=== PATIENT | male | born 1955 | race Hispanic/Latino ===

== ENCOUNTER 2016-09-18 07:08 | Day surgery (SDC) | payer MEDICAID ==
[2016-09-18] MEDS ORDERED: NACL 0.9% 500 ML 500 ML IV SCH (08:00)
[2016-09-18] MEDS ORDERED: HEPARIN 10,000 UNITS/10 ML ONE (08:13)
[2016-09-18] MEDS: VERSED ONE ×3 (08:44→09:25)
[2016-09-18] MEDS: SUBLIMAZE ONE ×3 (08:45→09:26)
[2016-09-18] MEDS: XYLOCAINE 2% INFILTRATI ONE ×2 (08:45→09:18)
[2016-09-18] MEDS: HEPARIN/NS 5000 UNIT/500ML(CATH LAB) 1,000 ML IR ONE ×2 (08:46→09:18)
[2016-09-18] MEDS: HEPARIN/NS 5000 UNIT/500ML(CATH LAB) 500 ML IR ONE ×2 (09:14→09:18)
[2016-09-18] MEDS ORDERED: NACL 0.9% 500 ML 500 ML ONE (09:45)
--- NOTE | 2016-09-18 10:28 | Short Stay Summary ---
Short Stay Documentation Date of service: 09/18/16 - History H&P: obtained from office - Allergies and Medications Current Medications: Allergies codeine Allergy (Verified 08/05/14 17:36) mahsa franco Home Medications Medication Instructions Recorded Confirmed Last Taken Type Aspirin [Aspirin BABY CHEW TAB] 81 mg PO DAILY 08/05/14 09/18/16 09/17/16 History Carvedilol [Coreg] 25 mg PO BID 08/05/14 09/18/16 09/18/16 History Lisinopril [Lisinopril] 40 mg PO DAILY 08/05/14 09/18/16 09/18/16 History Prednisone [Prednisone] 10 mg PO DAILY 08/05/14 09/18/16 09/17/16 History Simvastatin [Simvastatin] 20 mg PO HS 08/05/14 09/18/16 09/17/16 History Cilostazol [Pletal] 100 mg PO BID 09/18/16 09/18/16 09/17/16 History Spironolactone [Aldactone] 25 mg PO DAILY 09/18/16 09/18/16 09/17/16 History Active Medications Sodium Chloride (Nacl 0.9% 500 Ml) 500 mls @ 50 mls/hr IV DIRECT ANISHA Stop: 09/18/16 17:59 Last Admin: 09/18/16 08:15 Dose: 50 mls/hr - Brief post op/procedure progress note Date of procedure: 09/18/16 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 - Disposition Condition at discharge: Stable Disposition: DISCHARGED TO HOME OR SELFCARE Short Stay Discharge Plan Follow up with: ASHLEY GILES MD [Primary Care Provider] - 7 Days Prescriptions: Cilostazol [Pletal] 50 mg PO BID #60 tablet Clopidogrel Bisulfate [Plavix] 75 mg PO DAILY #30 tablet traMADol [Ultram 50 MG tab] 25 mg PO Q4HR PRN #10 tablet PRN Reason: Pain
[2016-09-18] MEDS ORDERED: ULTRAM PO PRN (11:54)
[2016-09-18 14:55] VITALS: BP 158/77
--- NOTE | 2016-09-19 00:33 | Procedure Note ---
PERIPHERAL INTERVENTION REPORT INDICATIONS: The patient is a 61-year-old white gentleman with history of significant claudication involving both the legs, left leg more than right. He can walk hardly 100 feet and he gets pain in the calf. The patient had angiograms done a few weeks ago, which showed bilateral superficial femoral artery disease. The left SFA showed a 100% occlusion in the distal part short segment with a 2-vessel runoff, anterior tibial occluded on the left side. Presently, the patient is being scheduled for intervention of the distal SFA occlusion. The patient is aware of the procedure, potential complications, and the alternatives of therapy available. DESCRIPTION OF PROCEDURE: The patient was brought to the catheterization laboratory in a fasting condition. Right groin area is thoroughly cleansed with chlorhexidine solution, sterile drapes were applied. Local anesthesia was achieved in the right groin. The patient was sedated with IV Versed and fentanyl. Right femoral artery puncture was made using 5-Lebanese micropuncture needle. Subsequently, 5-Lebanese sheath was introduced. Using 5-Lebanese rim catheter, a 0.035 inch Advantage guide wire was advanced into the left mid SFA. This catheter was replaced with a 6-Lebanese 45 cm destination sheath over an Advantage wire. The patient received 7000 units of heparin. The patient's angiogram showed previously inverted distal SFA occlusion, short segment. Runoff was still unchanged from before with 2-vessel runoff and occluded anterior tibial. Same Advantage Glidewire was advanced without much difficulty into the popliteal artery. Once it was confirmed with intraluminal, the lesion was dilated with 4.0 x 40 mm EverCross balloon up to 6 atmospheres. This gave good result, widely opened lumen was noted. No complaints of pain in the distal leg. Subsequently, 6.0 x 40 mm Evercross balloon was used and inflated to 8 atmospheres with very good result. This was inflated up to 3 minutes. The patient tolerated the procedure well. Final angiogram showed no residual stenosis in the occluded area. Distal runoff remained unchanged. After obtaining the final angiograms and satisfactory result was obtained, destination sheath was replaced with a short 6-Lebanese femoral sheath. ACT was found to be 250 seconds. During the entire procedure, the patient's vital signs have been stable including oxygen saturation, rhythm, and blood pressure. No untoward complications were noted. FINAL IMPRESSION: Uncomplicated balloon angioplasty followed by using a drug-eluting balloon, namely In.Pact Admiral balloon with very good result. The lesion was reduced from 100 to 0%. Good distal runoff was noted at the end of the procedure without any evidence of embolization or dissection. Intervention site was left distal SFA. The patient's sheath in the right groin will be taken out once ACT is close to 180 seconds. The patient will be monitored for 4-6 hours and will be discharged home if stable. JOB# [id number] ELLY/DON ASHTON
== END 2016-09-18 16:35 | disposition home or self-care (01) ==
LOC: OPU 07:08
PROVIDERS: ATTEND Internal Medicine
DX: I70.213 Atherosclerosis of native arteries of extremities with intermittent claudication, bilateral legs (principal); I11.0 Hypertensive heart disease with heart failure; I50.42 Chronic combined systolic (congestive) and diastolic (congestive) heart failure; J43.9 Emphysema, unspecified; E78.5 Hyperlipidemia, unspecified; G40.909 Epilepsy, unspecified, not intractable, without status epilepticus; F32.9 Major depressive disorder, single episode, unspecified; F17.210 Nicotine dependence, cigarettes, uncomplicated; Z95.810 Presence of automatic (implantable) cardiac defibrillator; Z79.899 Other long term (current) drug therapy; Z79.82 Long term (current) use of aspirin; Z86.73 Personal history of transient ischemic attack (TIA), and cerebral infarction without residual deficits; Z80.42 Family history of malignant neoplasm of prostate
CPT/HCPCS: 37224; 75710; 85347; C1725; C1769; C1887; C1894; J1644; J2250; J3010; J7040; Q9967

== ENCOUNTER 2016-12-28 11:57 | Emergency (ER) | payer MEDICAID ==
[2016-12-28 12:32] LABS: Basophils % (Auto) 1.1 % (0.0-1.8); Eosinophils % (Auto) 0.7 % (0.0-4.3); Hematocrit 44.5 % (35.5-45.6); Hemoglobin 14.8 gm/dl (11.8-15.2); Mean Corpuscular HGB Conc 33 % (32-34); Mean Corpuscular Hemoglobin 31 pg (28-32); Mean Corpuscular Volume 93 fl (84-94); Platelet Count 206 K/mm3 (140-440); Red Cell Distribution Width 14.7 % (13.2-15.2); White Blood Count 9.2 K/mm3 (4.5-11.0)
[2016-12-28 12:36] LABS: INR 1.01 (0.87-1.13); Partial Thromboplastin Time 27.4 Sec. (24.2-36.6)
[2016-12-28 12:47] LABS: Anion Gap 15 mmol/L; BUN/Creatinine Ratio 12.22; Blood Urea Nitrogen 11 mg/dL (9-20); Calcium 8.8 mg/dL (8.4-10.2); Carbon Dioxide 27 mmol/L (22-30); Chloride 100.9 mmol/L (98-107); Glucose 104 mg/dL (75-100); Potassium 3.8 mmol/L (3.6-5.0); Sodium 139 mmol/L (137-145)
--- NOTE | 2016-12-28 13:25 | Admit Criteria Form ---
Admission Criteria Documentation: CHEST PAIN Clinical Indications for Admission to Inpatient Care (Place 'X' for any and all applicable criteria): Admission is indicated for chest pain and ANY ONE of the following(1)(2)(3)(4)(5 ): [ ]I. Angina with acute coronary syndrome (Also use Myocardial Infarction or Angina guideline) [ ]II. Hemodynamic instability [ ]III. Angina needing acute intervention as indicated by ALL of the following( 11)(12): [ ]a) Unstable angina is present as indicated by angina that is ANY ONE of the following: [ ]i) New onset [ ]ii) Nocturnal [ ]iii) Prolonged at rest [ ]iv) Progressive [ ]b) Angina warrants acute intervention as indicated by ANY ONE of the following: [ ]i) Recurrent angina (e.g, not responding as previously to treatment) [ ]ii) Angina at rest or with low-level activities despite initial medical therapy [ ]iii) New or presumably new ST-segment depression on ECG [ ]iv) Signs or symptoms of heart failure (eg, dyspnea, pulmonary edema) [ ]v) New or worsening mitral regurgitation [ ]vi) Hemodynamic instability [ ]vii) Dangerous arrhythmia (eg, sustained ventricular tachycardia) [ ]viii) History of percutaneous coronary intervention within 6 months [ ]ix) History of coronary artery bypass graft surgery [ ]x) ABDOULAYE risk score of 2 or greater[A] [ ]xi) History of Diabetes(14) [ ]xii) High-risk cardiac ischemia findings on noninvasive testing (e.g, echocardiogram, treadmill testing, nuclear scan) [ ]xiii) Chronic renal insufficiency (ie, estimated GFR less than 60 mL/min/1.732m) [ ]xiv) Left ventricular ejection fraction less than 40% [ ]IV. Evidence of NH (eg, cardiac biomarkers positive, ST-segment elevation on ECG) also use Myocardial Infarction Criteria Form. [ ]V. Pulmonary edema [ ]. Respiratory distress [ ]VII. Chest pain indicative of serious diagnosis other than coronary artery disease (eg, aortic dissection) [ ]VIII. Contraindications and/or Inappropriate clinical situations for Observational Care in patients with Chest Pain, when ANY ONE of the following is required: [ ]a) Patient with risk factor for pulmonary embolism, acute coronary syndrome and myocardial infarction (18) [ ]b) Patient with Pulmonary embolism require an average LOS of 4.3 days, therefore emergency department observation management is inappropriate 18,23 [ ]c) Painful condition/s in the elderly, have the highest rate of recidivism after emergency department observation management (10.8%) 20,21,22 [ ]d) Elevated cardiac biomarker requires intensive and exhaustive care (19) [X ]IX. General contraindications and/or Inappropriate clinical situations for Observational Care in patients with Chest Pain, when ANY ONE of the following is required: [X ]a) Prediction of prolongation of LOS based on ANY ONE of the following may be considered as a contraindication for observational care 2, 3, 4, 5, 6, 7, 8, 9, 10, 11 [ ]i) Age > 65 yrs. [ X]ii) Patient arriving by ambulance [ ]iii) Patient with high acuity [ ]iv) Patient requiring vital sign monitoring [ ]v) Patient on IV medication [ ]b) Systolic blood pressures 180mmHg 3,12 [ ]c) Patient with altered mental status including delirium and other alteration of consciousness, (3) [ ]d) Patient whose discharge disposition will be to a [place] [facility] home or rehabilitation home should not be managed in Emergency Department Observation Unit. CMS rule requires 3 days hospital stay before such placement. 3,13 [ ]e) Patient with failure to thrive due to broad array of etiologies 3,16,17 [ ]f) Inability to ambulate 3,14 Extended stay beyond goal length of stay may be needed for (1)(28): [ ]a) Specific condition diagnosed after evaluation (eg, pulmonary embolism, aortic dissection) [ ]b) Unstable angina [ ]c) Continued suspicion of acute coronary syndrome with inability to complete needed cardiac evaluation (eg, patient clinically unable to undergo stress testing) [ ]d) Myocardial infarction (Contents from ANGINA and CHEST PAIN clinical indications for admission to inpatient care have been integrated in this form) The original [facility] content created by [employer] has been revised. The portions of the content which have been revised are identified through the use of italic text or in bold, and [facility] [employer] has neither reviewed nor approved the modified material. All other unmodified content is copyright [facility]. Please see references footnoted in the original [facility] [employer] edition 2016 Admission Criteria Met: Yes
--- NOTE | 2016-12-28 13:51 | Emergency Department Report ---
ED Chest Pain HPI - General Chief Complaint: Chest Pain Stated Complaint: CHEST PAIN Time Seen by Provider: 12/28/16 12:57 Source: patient, family, EMS Mode of arrival: Stretcher Limitations: No Limitations - History of Present Illness Initial Comments: 61-year-old male with past medical history of coronary artery disease, hypertension, [place] was sent to the ED complaining of chest pain. Onset of some dysarthria days prior. Patient states chest pains located left sternal area, pressure sensation, intermittent, worse with exertion, improves with rest. Patient denies: Fever/chills, cough, diaphoresis, shortness of breath, dyspnea on exertion, orthopnea, lower extremity edema. Patient states pain is similar to his previous [place]. 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 MD Complaint: chest pain -: Gradual (1), days(s) Onset: during rest Pain Location: substernal Pain Radiation: none Severity: moderate Severity scale (0 -10): 0 Quality: aching, heaviness Consistency: intermittent Improves With: nothing Worsens With: exertion re: denies: nausea, vomting, diaphoresis, dyspnea Other Symptoms: denies: cough, fever, acid taste in mouth, palpitations, burping - Related Data Home Medications Medication Instructions Recorded Confirmed Last Taken Aspirin [Aspirin BABY CHEW TAB] 81 mg PO DAILY 08/05/14 12/28/16 12/27/16 Carvedilol [Coreg] 25 mg PO BID 08/05/14 12/28/16 12/27/16 Lisinopril [Lisinopril] 40 mg PO DAILY 08/05/14 12/28/16 12/27/16 Prednisone [Prednisone] 10 mg PO DAILY 08/05/14 12/28/16 12/27/16 Simvastatin [Simvastatin] 20 mg PO HS 08/05/14 12/28/16 12/27/16 Spironolactone [Aldactone] 25 mg PO DAILY 09/18/16 12/28/16 12/27/16 Previous Rx's Medication Instructions Recorded Last Taken Type Cilostazol [Pletal] 50 mg PO BID #60 tablet 09/18/16 12/27/16 Rx Clopidogrel Bisulfate [Plavix] 75 mg PO DAILY #30 tablet 09/18/16 12/27/16 Rx traMADol [Ultram 50 MG tab] 25 mg PO Q4HR PRN #10 tablet 09/18/16 12/27/16 Rx Allergies Allergy/AdvReac Type Severity Reaction Status Date / Time codeine Allergy swells, Verified 08/05/14 17:36 hives morphine Allergy Swelling Verified 12/28/16 12:13 Heart Score - HEART Score History: Moderately suspicious EKG: Non-specific Age: 45-65 Risk factors: > 3 risk factors or hx of atherosclerotic disease Troponin: < normal limit HEART Score: 5 - Critical Actions Critical Actions: 4-6 pts:12-16.6% risk of adverse cardiac event. Should be admitted ED Review of Systems ROS: Stated complaint: CHEST PAIN Other details as noted in HPI Constitutional: denies: chills, fever Eyes: denies: eye pain, eye discharge, vision change ENT: denies: ear pain, throat pain Respiratory: denies: cough, shortness of breath, wheezing Cardiovascular: chest pain. denies: palpitations Endocrine: no symptoms reported Gastrointestinal: denies: abdominal pain, nausea, diarrhea Genitourinary: denies: urgency, dysuria Musculoskeletal: denies: back pain, joint swelling, arthralgia Skin: denies: rash, lesions Neurological: denies: headache, weakness, paresthesias Psychiatric: denies: anxiety, depression Hematological/Lymphatic: denies: easy bleeding, easy bruising ED Past Medical Hx - Past Medical History Previous Medical History?: Yes Hx Hypertension: Yes (2009) Hx CVA: Yes (ischemic x 2 (no resid. deficits)) Hx Heart Attack/AMI: Yes (x2 2009) Hx Congestive Heart Failure: Yes Hx Diabetes: No Hx COPD: Yes - Surgical History Past Surgical History?: Yes Hx Pacemaker: Yes (2010) Hx Internal Defibrillator: Yes (2010) - Social History Smoking Status: Current Every Day Smoker - Medications Home Medications: Home Medications Medication Instructions Recorded Confirmed Last Taken Type Aspirin [Aspirin BABY CHEW TAB] 81 mg PO DAILY 08/05/14 12/28/16 12/27/16 History Carvedilol [Coreg] 25 mg PO BID 08/05/14 12/28/16 12/27/16 History Lisinopril [Lisinopril] 40 mg PO DAILY 08/05/14 12/28/16 12/27/16 History Prednisone [Prednisone] 10 mg PO DAILY 08/05/14 12/28/16 12/27/16 History Simvastatin [Simvastatin] 20 mg PO HS 08/05/14 12/28/16 12/27/16 History Cilostazol [Pletal] 50 mg PO BID #60 tablet 09/18/16 12/28/16 12/27/16 Rx Clopidogrel Bisulfate [Plavix] 75 mg PO DAILY #30 tablet 09/18/16 12/28/1612/27 Rx Spironolactone [Aldactone] 25 mg PO DAILY 09/18/16 12/28/16 12/27/16 History traMADol [Ultram 50 MG tab] 25 mg PO Q4HR PRN #10 tablet 09/18/16 12/28/1612/27 Rx ED Physical Exam - General Limitations: No Limitations General appearance: alert, in no apparent distress - Head Head exam: Present: atraumatic, normocephalic - Eye Eye exam: Present: normal appearance - ENT ENT exam: Present: mucous membranes moist - Neck Neck exam: Present: normal inspection - Respiratory Respiratory exam: Present: normal lung sounds bilaterally. Absent: respiratory distress - Cardiovascular Cardiovascular Exam: Present: regular rate, normal rhythm. Absent: systolic murmur, diastolic murmur, rubs, gallop - GI/Abdominal GI/Abdominal exam: Present: soft, normal bowel sounds - Rectal Rectal exam: Present: deferred - Extremities Exam Extremities exam: Present: normal inspection - Back Exam Back exam: Present: normal inspection - Neurological Exam Neurological exam: Present: alert, oriented X3 - Psychiatric Psychiatric exam: Present: normal affect, normal mood - Skin Skin exam: Present: warm, dry, intact, normal color. Absent: rash ED Course Vital Signs 12/28/16 12/28/16 12/28/16 12:09 12:36 12:41 Temperature 98.2 F Pulse Rate 76 76 Respiratory 20 18 18 Rate Blood Pressure 153/92 Blood Pressure 133/92 [Right] O2 Sat by Pulse 98 95 Oximetry - Reevaluation(s) Reevaluation #1: 12/28/16 14:01 Patient resting comfortably refusing meds for pain. ED Medical Decision Making - Lab Data Result diagrams: 12/28/16 12:16 12/28/16 12:16 - EKG Data -: EKG Interpreted by Me EKG shows normal: sinus rhythm, axis (normal), intervals (qtc 464 ), QRS complexes, ST-T waves (no STEMI ) Rate: normal (73) - EKG Data Interpretation: no acute changes - Radiology Data Radiology results: image reviewed interpreted by me: No acute findings. Conclusion: No acute chest process with a few incidental findings, including possible underlying COPD. Dr Morales - Medical Decision Making 15-year-old male with past medical history of coronary artery disease, hypertension, [place] presenting to the ED complaining of chest pain. At this time patient does not appear to have STEMI/NSTEMI. I am concerned that he has risk factors for unstable angina there for I will admit to medicine service for observation and serial troponins. Patient has been accepted at hospitalist Dr. HAYES. Low suspicion for: Pneumonia, pneumothorax, PE, dissection. Critical Care Time: No Critical care attestation.: If time is entered above; I have spent that time in minutes in the direct care of this critically ill patient, excluding procedure time. ED Disposition Clinical Impression: Chest pain Disposition: DC-09 OP ADMIT IP TO THIS HOSP Is pt being admited?: Yes Does the pt Need Aspirin: No Condition: Stable Instructions: Chest Pain (ED) Referrals: PRIMARY CARE, [Primary Care Provider] - 3-5 Days
--- NOTE | 2016-12-28 13:56 | XRay Report ---
PORTABLE CHEST INDICATION: Cough. COMPARISON: 02/08/2013 FINDINGS: Portable, frontal chest radiographs, 2 images demonstrate slightly crowded markings centrally and inferiorly with somewhat lucent upper lung zones. No pleural effusions or CHF. Normal cardiomediastinal silhouette. Mild left retrocardiac scarring or atelectasis. Left AICD with dual chamber leads. Intact bones. EKG leads. CONCLUSION: No acute chest process with few incidental findings, including possible underlying COPD. Thank you for the opportunity to participate in this patient's care.
[2016-12-28] MEDS ORDERED: ULTRAM PO PRN (20:32)
--- NOTE | 2016-12-28 20:32 | History and Physical Report ---
History of Present Illness Date of examination: 12/28/16 Date of admission: 12/28/16 Chief complaint: L Side Chest pain 1 to 2 days History of present illness: [place]: 61-year-old male with past medical history of coronary artery disease, hypertension, AR was sent to the ED complaining of chest pain. Onset of some dysarthria days prior. Patient states chest pains located left sternal area, pressure sensation, intermittent, worse with exertion, improves with rest. Patient denies: Fever/chills, cough, diaphoresis, shortness of breath, dyspnea on exertion, orthopnea, lower extremity edema. Patient states pain is similar to his previous AR. 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 MD Complaint: chest pain -: Gradual (1), days(s) Onset: during rest Pain Location: substernal Pain Radiation: none Severity: moderate Severity scale (0 -10): 0 Quality: aching, heaviness Consistency: intermittent Improves With: nothing Worsens With: exertion re: denies: nausea, vomting, diaphoresis, dyspnea Other Symptoms: denies: cough, fever, acid taste in mouth, palpitations, burping - Related Data Home Medications Medication Instructions Recorded Confirmed Last Taken Aspirin [Aspirin BABY CHEW TAB] 81 mg PO DAILY 08/05/14 12/28/16 12/27/16 Carvedilol [Coreg] 25 mg PO BID 08/05/14 12/28/16 12/27/16 Lisinopril [Lisinopril] 40 mg PO DAILY 08/05/14 12/28/16 12/27/16 Prednisone [Prednisone] 10 mg PO DAILY 08/05/14 12/28/16 12/27/16 Simvastatin [Simvastatin] 20 mg PO HS 08/05/14 12/28/16 12/27/16 Spironolactone [Aldactone] 25 mg PO DAILY 09/18/16 12/28/16 12/27/16 Previous Rx's Medication Instructions Recorded Last Taken Type Cilostazol [Pletal] 50 mg PO BID #60 tablet 09/18/16 12/27/16 Rx Clopidogrel Bisulfate [Plavix] 75 mg PO DAILY #30 tablet 09/18/16 12/27/16 Rx traMADol [Ultram 50 MG tab] 25 mg PO Q4HR PRN #10 tablet 09/18/16 12/27/16 Rx Allergies Allergy/AdvReac Type Severity Reaction Status Date / Time codeine Allergy swells, Verified 08/05/14 17:36 hives morphine Allergy Swelling Verified 12/28/16 12:13 Heart Score - HEART Score History: Moderately suspicious EKG: Non-specific Age: 45-65 Risk factors: > 3 risk factors or hx of atherosclerotic disease Troponin: < normal limit HEART Score: 5 - Critical Actions Critical Actions: 4-6 pts:12-16.6% risk of adverse cardiac event. Should be admitted ED Review of Systems ROS: Stated complaint: CHEST PAIN Other details as noted in HPI Constitutional: denies: chills, fever Eyes: denies: eye pain, eye discharge, vision change ENT: denies: ear pain, throat pain Respiratory: denies: cough, shortness of breath, wheezing Cardiovascular: chest pain. denies: palpitations Endocrine: no symptoms reported Gastrointestinal: denies: abdominal pain, nausea, diarrhea Genitourinary: denies: urgency, dysuria Musculoskeletal: denies: back pain, joint swelling, arthralgia Skin: denies: rash, lesions Neurological: denies: headache, weakness, paresthesias Psychiatric: denies: anxiety, depression Hematological/Lymphatic: denies: easy bleeding, easy bruising ED Past Medical Hx - Past Medical History Previous Medical History?: Yes Hx Hypertension: Yes (2009) Hx CVA: Yes (ischemic x 2 (no resid. deficits)) Hx Heart Attack/AMI: Yes (x2 2009) Hx Congestive Heart Failure: Yes Hx Diabetes: No Hx COPD: Yes - Surgical History Past Surgical History?: Yes Hx Pacemaker: Yes (2010) Hx Internal Defibrillator: Yes (2010) - Social History Smoking Status: Current Every Day Smoker - Medications Home Medications: Home Medications Medication Instructions Recorded Confirmed Last Taken Type Aspirin [Aspirin BABY CHEW TAB] 81 mg PO DAILY 08/05/14 12/28/16 12/27/16 History Carvedilol [Coreg] 25 mg PO BID 08/05/14 12/28/16 12/27/16 History Lisinopril [Lisinopril] 40 mg PO DAILY 08/05/14 12/28/16 12/27/16 History Prednisone [Prednisone] 10 mg PO DAILY 08/05/14 12/28/16 12/27/16 History Simvastatin [Simvastatin] 20 mg PO HS 08/05/14 12/28/16 12/27/16 History Cilostazol [Pletal] 50 mg PO BID #60 tablet 09/18/16 12/28/16 12/27/16 Rx Clopidogrel Bisulfate [Plavix] 75 mg PO DAILY #30 tablet 09/18/16 12/28/1612/27 Rx Spironolactone [Aldactone] 25 mg PO DAILY 09/18/16 12/28/16 12/27/16 History traMADol [Ultram 50 MG tab] 25 mg PO Q4HR PRN #10 tablet 09/18/16 12/28/1612/27 Rx Medications and Allergies Allergies Allergy/AdvReac Type Severity Reaction Status Date / Time codeine Allergy swells, Verified 08/05/14 17:36 hives morphine Allergy Swelling Verified 12/28/16 12:13 Home Medications Medication Instructions Recorded Confirmed Last Taken Type Aspirin [Aspirin BABY CHEW TAB] 81 mg PO DAILY 08/05/14 12/28/16 12/27/16 History Carvedilol [Coreg] 25 mg PO BID 08/05/14 12/28/16 12/27/16 History Lisinopril [Lisinopril] 40 mg PO DAILY 08/05/14 12/28/16 12/27/16 History Prednisone [Prednisone] 10 mg PO DAILY 08/05/14 12/28/16 12/27/16 History Simvastatin [Simvastatin] 20 mg PO HS 08/05/14 12/28/16 12/27/16 History Cilostazol [Pletal] 50 mg PO BID #60 tablet 09/18/16 12/28/16 12/27/16 Rx Clopidogrel Bisulfate [Plavix] 75 mg PO DAILY #30 tablet 09/18/16 12/28/1612/27 Rx Spironolactone [Aldactone] 25 mg PO DAILY 09/18/16 12/28/16 12/27/16 History traMADol [Ultram 50 MG tab] 25 mg PO Q4HR PRN #10 tablet 09/18/16 12/28/1612/27 Rx Exam - Constitutional Vitals: Temp Pulse Resp BP Pulse Ox 98.2 F 78 18 174/105 99 12/28/16 12:09 12/28/16 18:37 12/28/16 18:37 12/28/16 18:37 12/28/16 18:37 General appearance: Present: no acute distress, well-nourished - EENT Eyes: Present: PERRL ENT: hearing intact, clear oral mucosa - Neck Neck: Present: supple, normal ROM - Respiratory Respiratory effort: normal Respiratory: bilateral: CTA - Cardiovascular Heart Sounds: Present: S1 & S2. Absent: rub, click - Extremities Extremities: pulses symmetrical, No edema Peripheral Pulses: within normal limits - Abdominal General gastrointestinal: Present: soft, non-tender, non-distended, normal bowel sounds Male genitourinary: Present: normal - Integumentary Integumentary: Present: clear, warm, dry - Musculoskeletal Musculoskeletal: gait normal, strength equal bilaterally - Psychiatric Psychiatric: appropriate mood/affect, intact judgment & insight - Neurologic Neurologic: CNII-XII intact, moves all extremities Results - Labs CBC & Chem 7: 12/28/16 12:16 12/28/16 12:16 Labs: Laboratory Last Values WBC 9.2 K/mm3 (4.5-11.0) 12/28/16 12:16 RBC 4.80 M/mm3 (3.65-5.03) 12/28/16 12:16 Hgb 14.8 gm/dl (11.8-15.2) 12/28/16 12:16 Hct 44.5 % (35.5-45.6) 12/28/16 12:16 MCV 93 fl (84-94) 12/28/16 12:16 MCH 31 pg (28-32) 12/28/16 12:16 MCHC 33 % (32-34) 12/28/16 12:16 RDW 14.7 % (13.2-15.2) 12/28/16 12:16 Plt Count 206 K/mm3 (140-440) 12/28/16 12:16 Lymph % (Auto) 10.6 % (13.4-35.0) L 12/28/16 12:16 [place] % (Auto) 4.2 % (0.0-7.3) 12/28/16 12:16 Eos % (Auto) 0.7 % (0.0-4.3) 12/28/16 12:16 Baso % (Auto) 1.1 % (0.0-1.8) 12/28/16 12:16 Lymph # 1.0 K/mm3 (1.2-5.4) L 12/28/16 12:16 [place] # 0.4 K/mm3 (0.0-0.8) 12/28/16 12:16 Eos # 0.1 K/mm3 (0.0-0.4) 12/28/16 12:16 Baso # 0.1 K/mm3 (0.0-0.1) 12/28/16 12:16 Seg Neutrophils % 83.4 % (40.0-70.0) H 12/28/16 12:16 Seg Neutrophils # 7.7 K/mm3 (1.8-7.7) 12/28/16 12:16 PT 13.2 Sec. (12.2-14.9) 12/28/16 12:16 INR 1.01 (0.87-1.13) 12/28/16 12:16 APTT 27.4 Sec. (24.2-36.6) 12/28/16 12:16 Sodium 139 mmol/L (137-145) 12/28/16 12:16 Potassium 3.8 mmol/L (3.6-5.0) 12/28/16 12:16 Chloride 100.9 mmol/L (98-107) 12/28/16 12:16 Carbon Dioxide 27 mmol/L (22-30) 12/28/16 12:16 Anion Gap 15 mmol/L 12/28/16 12:16 BUN 11 mg/dL (9-20) 12/28/16 12:16 Creatinine 0.9 mg/dL (0.8-1.5) 12/28/16 12:16 Estimated GFR > 60 ml/min 12/28/16 12:16 BUN/Creatinine Ratio 12.22 % 12/28/16 12:16 Glucose 104 mg/dL (75-100) H 12/28/16 12:16 Calcium 8.8 mg/dL (8.4-10.2) 12/28/16 12:16 Troponin T < 0.010 ng/mL (0.00-0.029) 12/28/16 15:57 - Imaging and Cardiology EKG: report reviewed Assessment and Plan Advance Directives: Yes (FC) VTE prophylaxis?: Chemical Plan of care discussed with patient/family: Yes - Patient Problems (1) Acute coronary syndrome Status: Acute Plan to address problem: ACS protocol.Lexiscan ordered (2) PVD (peripheral vascular disease) with claudication Status: Acute (3) CAD (coronary artery disease) Status: Chronic Qualifiers: Coronary Disease-Associated Artery/Lesion type: [place] artery [place] vs. transplanted heart: [place] heart Associated angina: with unspecified angina Qualified Code(s): I25.119 - Atherosclerotic heart disease of [place] coronary artery with unspecified angina pectoris Plan to address problem: Cont Plavix (4) Hypertension Status: Chronic Qualifiers: Hypertension type: essential hypertension Qualified Code(s): I10 - Essential (primary) hypertension Plan to address problem: Cont Coreg and Lisinopril (5) Tobacco abuse Status: Chronic Plan to address problem: counselled Nicoderm patch ordered
[2016-12-28] MEDS ORDERED: DULCOLAX PR PRN (20:34)
[2016-12-28] MEDS ORDERED: AMBIEN PO PRN (20:34)
[2016-12-28] MEDS ORDERED: TYLENOL PO PRN (20:34)
[2016-12-28] MEDS ORDERED: PERCOCET 5/325 PO PRN (20:34)
[2016-12-28] MEDS ORDERED: DILAUDID IV PRN (20:34)
[2016-12-28] MEDS ORDERED: ZOFRAN IV PRN (20:34)
[2016-12-28] MEDS ORDERED: MILK OF MAGNESIA PO PRN (20:34)
[2016-12-28] MEDS ORDERED: ZESTRIL PO SCH (21:00)
[2016-12-28] MEDS ORDERED: BABY ASPIRIN PO SCH (21:00)
[2016-12-28] MEDS ORDERED: DELTASONE PO SCH (21:00)
[2016-12-28 21:54] VITALS: BP 161/89
[2016-12-28] MEDS ORDERED: ALDACTONE PO SCH (22:00)
[2016-12-28] MEDS ORDERED: COREG PO SCH (22:00)
[2016-12-28] MEDS ORDERED: PLAVIX PO SCH (22:00)
[2016-12-28] MEDS ORDERED: ZOCOR PO SCH (22:00)
[2016-12-28] MEDS ORDERED: PLETAL PO SCH (22:00)
[2016-12-29] MEDS ORDERED: ZESTRIL PO SCH (10:00)
--- NOTE | 2016-12-29 19:39 | Discharge Summary ---
Providers - Providers Date of discharge: 12/28/16 12/28/16 20:34 Consult to Physician [CONS] Routine Consulting Provider: CHANEL ALVARADO Reason For Exam: ACS Primary care physician: GREASE MONKEY Hospitalization Condition: Stable Hospital course: [id number] Left AMA from ED Disposition: [id number] LEFT AGAINST MED ADVICE - Discharge Diagnoses (1) Acute coronary syndrome Status: Acute (2) PVD (peripheral vascular disease) with claudication Status: Acute (3) CAD (coronary artery disease) Status: Chronic Qualifiers: Coronary Disease-Associated Artery/Lesion type: [place] artery [place] vs. transplanted heart: [place] heart Associated angina: with unspecified angina Qualified Code(s): I25.119 - Atherosclerotic heart disease of [place] coronary artery with unspecified angina pectoris (4) Hypertension Status: Chronic Qualifiers: Hypertension type: essential hypertension Qualified Code(s): I10 - Essential (primary) hypertension (5) Tobacco abuse Status: Chronic Core Measure Documentation - Palliative Care Palliative Care/ Comfort Measures: Not Applicable - Core Measures Any of the following diagnoses?: none Exam - Constitutional Vitals: Temp Pulse Resp BP Pulse Ox 98.2 F 78 18 161/89 98 12/28/16 12:09 12/28/16 20:00 12/28/16 20:00 12/28/16 20:00 12/28/16 20:00 General appearance: Present: no acute distress, well-nourished - EENT Eyes: Present: PERRL ENT: hearing intact, clear oral mucosa - Neck Neck: Present: supple, normal ROM - Respiratory Respiratory effort: normal Respiratory: bilateral: CTA - Cardiovascular Heart Sounds: Present: S1 & S2. Absent: rub, click - Extremities Extremities: pulses symmetrical, No edema Peripheral Pulses: within normal limits - Abdominal General gastrointestinal: Present: soft, non-tender, non-distended, normal bowel sounds Male genitourinary: Present: normal - Integumentary Integumentary: Present: clear, warm, dry - Musculoskeletal Musculoskeletal: gait normal, strength equal bilaterally - Psychiatric Psychiatric: appropriate mood/affect, intact judgment & insight - Neurologic Neurologic: CNII-XII intact, moves all extremities Plan Activity: no restrictions Diet: low cholesterol, low salt Follow up with: PRIMARY CARE, [Primary Care Provider] - 3-5 Days
== END 2016-12-28 21:35 | disposition left against medical advice (07) ==
LOC: ED 11:57
DX: R07.9 Chest pain, unspecified (principal); I10 Essential (primary) hypertension; I63.9 Cerebral infarction, unspecified; I25.2 Old myocardial infarction; I50.9 Heart failure, unspecified; J44.9 Chronic obstructive pulmonary disease, unspecified; F17.200 Nicotine dependence, unspecified, uncomplicated; Z95.0 Presence of cardiac pacemaker; Z79.82 Long term (current) use of aspirin; Z88.5 Allergy status to narcotic agent
CPT/HCPCS: 36415; 71010; 80048; 84484; 85025; 85610; 85730; 93005; 93010